=== PATIENT | male | born 1975 | race Caucasian/White ===

== ENCOUNTER 2017-04-16 16:31 | Emergency (ER) | payer OTHER ==
[~2017-04-16] VITALS: Ht 180.3 cm; Wt 65.9 kg
[~2017-04-16 16:31] MED LIST: KEFL500C OR; LISI20TA5 OR; PERC5TAB8 OR; PERC7.5T8 OR
[2017-04-16 16:32] VITALS: BP 158/78
[2017-04-16] MEDS ORDERED: LEXA1TAB2 PO (16:39)
[2017-04-16] MEDS ORDERED: OMEP40CA2 PO (16:39)
[2017-04-16] MEDS ORDERED: PRED20TA PO (17:16)
[2017-04-16] MEDS ORDERED: CLAR10CA3 PO (17:19)
[2017-04-17] MEDS ORDERED: KETO2CR EXT (08:16)
--- NOTE | 2017-04-17 08:32 | ED PDOC ---
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 he will instead use ketoconazole cream and previously prescribed antihistamine for the rash. Tran Brennan PA-C Apr 17, 2017 08:31
== END 2017-04-16 17:43 | disposition home or self-care (01) ==
LOC: M ED 16:31
DX: L30.9 Dermatitis, unspecified (principal); L29.9 Pruritus, unspecified; R03.0 Elevated blood-pressure reading, without diagnosis of hypertension; F33.9 Major depressive disorder, recurrent, unspecified; Z98.0 Intestinal bypass and anastomosis status; Z79.899 Other long term (current) drug therapy

== ENCOUNTER 2017-04-27 21:02 | Emergency (ER) | payer OTHER ==
[~2017-04-27] VITALS: Ht 180.3 cm; Wt 104.5 kg
[~2017-04-27 21:02] MED LIST changes: +CLAR10CA3 PO; +KETO2CR EXT; +LEXA1TAB2 PO; +OMEP40CA2 PO; +PRED20TA PO
[2017-04-27] MEDS ORDERED: FAMOTIDINE 20 MG TAB PO ONE (21:30)
[2017-04-27] MEDS ORDERED: diphenhydrAMINE 25 MG CAP PO ONE (21:30)
[2017-04-27] MEDS ORDERED: methylPREDNISolone INJ 125 MG/2 ML VIAL (J2930) IM ONE (21:30)
[2017-04-27] MEDS ORDERED: SPOR1CAP PO (22:34)
[2017-04-27] MEDS ORDERED: PRED20TA PO (22:34)
[2017-04-27 22:38] VITALS: BP 132/58
== END 2017-04-27 22:39 | disposition home or self-care (01) ==
LOC: M ED 21:02
DX: B36.0 Pityriasis versicolor (principal); K21.9 Gastro-esophageal reflux disease without esophagitis; Z79.899 Other long term (current) drug therapy
CPT/HCPCS: 96372; 99282; J2930

== ENCOUNTER 2017-12-06 19:11 | Emergency (ER) | payer OTHER ==
[2017-12-06] MEDS: FLUORESCEIN OPHTH 1 MG STRIP OD (21:15)
[2017-12-06] MEDS: TETRACAINE 0.5% OPHTH SOLN 4ML OD (21:15)
[2017-12-06] MEDS: ERYTHROMYCIN OPHTH OINT OD (21:40)
== END 2017-12-06 21:40 | disposition home or self-care (01) ==
LOC: M ED 19:11
DX: T15.01XA Foreign body in cornea, right eye, initial encounter (principal); W50.0XXA Accidental hit or strike by another person, initial encounter; Y92.009 Unspecified place in unspecified non-institutional (private) residence as the place of occurrence of the external cause; I10 Essential (primary) hypertension; J45.909 Unspecified asthma, uncomplicated; F33.9 Major depressive disorder, recurrent, unspecified; F41.9 Anxiety disorder, unspecified; F17.200 Nicotine dependence, unspecified, uncomplicated; Z79.899 Other long term (current) drug therapy; Z98.0 Intestinal bypass and anastomosis status
CPT/HCPCS: 65220

== ENCOUNTER 2018-07-28 19:48 | Emergency (ER) | payer OTHER ==
[~2018-07-28] VITALS: Ht 177.8 cm; Wt 106.8 kg
[~2018-07-28 19:48] MED LIST changes: +ERYTOIN8 OD; +SPOR1CAP PO
--- NOTE | 2018-07-28 21:01 | REPVR ---
EXAM: US Right Duplex Lower Extremity Veins, Limited EXAM DATE/TIME: 07/28/2018 8:41 PM CLINICAL HISTORY: 42 years old, male; Pain; Leg, upper; Right; Additional info: R/O dvt TECHNIQUE: Real-time Duplex ultrasound of the Right Lower Extremity with 2-D bess scale, color Doppler flow and spectral waveform analysis. Limited exam was focused on the right lower extremity veins. COMPARISON: No relevant prior studies available. FINDINGS: Right deep veins: Unremarkable. The common femoral, femoral and popliteal veins are patent without thrombus. Normal compressibility, augmentation response and Doppler waveforms. Right superficial veins: Unremarkable. Saphenofemoral junction is patent without thrombus. Soft tissues: Unremarkable. IMPRESSION: No sonographic evidence of deep vein thrombosis. Electronically signed by: Deangelo Lovelace On 07/28/2018 21:01:05 PM
[2018-07-28] MEDS ORDERED: KETOROLAC TROMETHAMINE 10 MG TAB PO ONE (21:45)
[2018-07-28] MEDS ORDERED: MOBI4TAB PO (21:46)
[2018-07-28 22:14] VITALS: BP 140/85
--- NOTE | 2018-07-29 07:32 | REP ---
Clinical: Pain and swelling. Technique: AP, lateral, bilateral oblique and sunrise views of the right and left knee. Findings: Mild degenerative changes include subchondral sclerosis along the tibial plateaus with minimal joint space narrowing. Cortical irregularity to the femoral condyles noted bilaterally along with small osteophyte formation involving the left medial femoral condyle. [place] view demonstrate lateral marginal spurring along the patellar contours with subchondral sclerosis and minimally decreased patellofemoral joint space bilaterally. There is no evidence for acute fracture or dislocation. No effusion. Impression: Mild/early moderate arthritic changes (left greater than right). Electronically Signed by Abelino Linares MD 07/29/2018 07:24 A
== END 2018-07-28 22:16 | disposition home or self-care (01) ==
LOC: M ED 19:48
DX: I80.01 Phlebitis and thrombophlebitis of superficial vessels of right lower extremity (principal); M70.52 Other bursitis of knee, left knee; I10 Essential (primary) hypertension; J45.909 Unspecified asthma, uncomplicated; K21.9 Gastro-esophageal reflux disease without esophagitis; F33.9 Major depressive disorder, recurrent, unspecified; F41.9 Anxiety disorder, unspecified; Z98.84 Bariatric surgery status; Z79.899 Other long term (current) drug therapy; F17.210 Nicotine dependence, cigarettes, uncomplicated

== ENCOUNTER 2018-10-26 17:48 | Emergency (ER) | payer OTHER ==
[~2018-10-26] VITALS: Ht 177.8 cm; Wt 106.8 kg
[~2018-10-26 17:48] MED LIST changes: +MOBI4TAB PO
[2018-10-26] MEDS ORDERED: ADACEL/BOOSTRIX VACCINE (DIPHTH/PERTUSS/ACELL/TETANUS)0.5ML SYR (90715) IM ONE (18:15)
[2018-10-26] MEDS ORDERED: LIDOCAINE 1% MDV 20ML VIAL SC ONE (19:15)
--- NOTE | 2018-10-26 19:29 | REP ---
Clinical: Laceration. Technique: AP, lateral, bilateral oblique views of the right third digit. Findings: Soft tissue injury noted over the terminal tuft/distal phalanx. No foreign body. No acute fracture or dislocation. Osseous structures and joint space is normal. Impression: Soft tissue injury. Electronically Signed by Abelino Linares MD 10/26/2018 07:21 P
[2018-10-26 19:57] VITALS: BP 129/73
== END 2018-10-26 20:00 | disposition home or self-care (01) ==
LOC: M ED 17:48
DX: S61.212A Laceration without foreign body of right middle finger without damage to nail, initial encounter (principal); W26.0XXA Contact with knife, initial encounter; Y92.009 Unspecified place in unspecified non-institutional (private) residence as the place of occurrence of the external cause; Y93.H3 Activity, building and construction; F17.210 Nicotine dependence, cigarettes, uncomplicated; Z79.899 Other long term (current) drug therapy

== ENCOUNTER → 2018-10-28 | Outpatient (CLI) | payer OTHER ==
[2018-10-28 18:23] LABS: BASO # 0.1 10^3/uL (0.0-0.2); BASO % 0.8 % (0.0-1.0); EOS # 0.4 10^3/uL (0.0-0.50); EOS % 6.4 % (0.0-3.0); HEMOGLOBIN 16.5 g/dl (13.5-17.5); LYMPH # 1.7 10^3/uL (1.5-4.5); LYMPH % 28.2 % (24.0-44.0); MEAN CORPUSCULAR HEMOGLOBIN 30.4 pg (27.0-33.0); MEAN CORPUSCULAR HGB CONC 33.7 g/dl (32.0-36.5); MEAN CORPUSCULAR VOLUME 90.2 fl (80.0-96.0); MONO # 0.4 10^3/uL (0.0-0.8); MONO % 7.4 % (0.0-5.0); NEUTROPHILS # 3.4 10^3/uL (1.8-7.7); NEUTROPHILS % 56.9 % (36.0-66.0); PLATELET COUNT, AUTOMATED 231 10^3/uL (150-450); RED BLOOD COUNT 5.43 10^6/uL (4.30-6.10)
[2018-10-28 18:37] LABS: ALBUMIN 4.2 GM/DL (3.2-5.2); ALT/SGPT 23 U/L (12-78); BILIRUBIN,TOTAL 1.3 MG/DL (0.2-1.0); BLOOD UREA NITROGEN 14 MG/DL (7-18); CALCIUM LEVEL 9.1 MG/DL (8.5-10.1); CARBON DIOXIDE LEVEL 29 MEQ/L (21-32); CHLORIDE LEVEL 105 MEQ/L (98-107); CHOLESTEROL LEVEL 145 MG/DL (<200); CHOLESTEROL RISK RATIO 2.959 (<5); GLOMERULAR FILTRATION RATE > 60.0 (>60); GLUCOSE, FASTING 88 MG/DL (70-100); HDL CHOLESTEROL 49 MG/DL (>40); LDL CHOLESTEROL 86 MG/DL (<100); NON-HDL-C 96 MG/DL; POTASSIUM SERUM 4.5 MEQ/L (3.5-5.1); SODIUM LEVEL 140 MEQ/L (136-145); THYROID STIMULATING HORMONE 0.932 uIU/ML (0.358-3.740); TOTAL PROTEIN 6.9 GM/DL (6.4-8.2); TRIGLYCERIDES LEVEL 51 MG/DL (<150)
[2018-10-28 19:10] LABS: HEMOGLOBIN A1c 4.9 %
[2018-10-30 09:02] LABS: TESTOSTERONE 769 NG/DL (241-827)
== END ==
LOC: M ADAMS 11:45
DX: Z13.0 Encounter for screening for diseases of the blood and blood-forming organs and certain disorders involving the immune mechanism (principal); Z13.1 Encounter for screening for diabetes mellitus; Z13.29 Encounter for screening for other suspected endocrine disorder; Z13.220 Encounter for screening for lipoid disorders; R73.01 Impaired fasting glucose; E29.1 Testicular hypofunction

== ENCOUNTER → 2019-04-04 | Outpatient (CLI) | payer OTHER ==
[~2019-04-04] MED LIST changes: +BACT800T5 PO; +BUSP10TA PO; +CLIN150C14 PO; -OMEP40CA2 PO; +OMEP40CA97 PO
--- NOTE | 2019-04-04 13:44 | REP ---
MRI RIGHT SHOULDER: TECHNIQUE: Axial T2 fat sat, gradient echo, sagittal oblique T2 fat sat, coronal oblique T1, T2 fat sat. There is a partial undersurface tear of the distal supraspinatus tendon. Infraspinatus tendon demonstrates areas of increased signal on T2-weighted images consistent with partial tears which have a predominantly longitudinal orientation. There is moderate subscapularis tendinopathy/tendonitis with possible partial tear. There are moderate hypertrophic degenerative changes of the acromioclavicular joint with subchondral marrow edema. The acromion is type 2. Biceps tendon is within the bicipital groove with mild surrounding fluid which may indicate tenosynovitis. There is no Hill-Sachs deformity. The deltoid muscle demonstrates no abnormal signal. There is fraying of the biceps labral complex and also diffusely of the superior labrum. Other portions of the labrum appear intact. Bone marrow signal is otherwise unremarkable. No paralabral cyst is seen. Normal amount of glenohumeral joint fluid is seen. IMPRESSION: Partial undersurface tear supraspinatus tendon. Longitudinal interstitial type tears of the infraspinatus tendon extending to the musculotendinous junction. Moderate subscapularis tendinopathy with possible partial tear. There are moderate hypertrophic degenerative changes of the acromioclavicular joint with a type II acromion. Mild fluid surrounding the biceps tendon may represent mild tenosynovitis. There is fraying of the biceps labral complex and superior labrum. Electronically Signed by Mahendra Cortez MD 04/04/2019 03:36 P
== END ==
LOC: M RAD 10:16
PROVIDERS: ATTEND Orthopaedic Surgery Sports Medicine
DX: M25.511 Pain in right shoulder (principal); M19.011 Primary osteoarthritis, right shoulder

== ENCOUNTER 2019-07-20 20:39 | Emergency (ER) | payer OTHER ==
[~2019-07-20] VITALS: Ht 177.8 cm; Wt 104.5 kg
[~2019-07-20 20:39] MED LIST changes: -BACT800T5 PO; -BUSP10TA PO; -CLIN150C14 PO
[2019-07-20] MEDS ORDERED: BUSP10TA PO (20:44)
[2019-07-20] MEDS ORDERED: BACTRIM 160MG/800MG DS TAB PO ONE (22:15)
[2019-07-20] MEDS ORDERED: BACT800T5 PO (22:19)
[2019-07-20 22:28] VITALS: BP 135/81
== END 2019-07-20 22:33 | disposition home or self-care (01) ==
LOC: M ED 20:39
DX: L03.114 Cellulitis of left upper limb (principal); J45.909 Unspecified asthma, uncomplicated; I10 Essential (primary) hypertension; K21.9 Gastro-esophageal reflux disease without esophagitis; F17.210 Nicotine dependence, cigarettes, uncomplicated

== ENCOUNTER 2019-07-22 00:36 | Observation (INO) | payer OTHER ==
[~2019-07-22] VITALS: Ht 177.8 cm; Wt 104.5 kg
[~2019-07-22 00:36] MED LIST changes: +BACT800T5 PO; +BUSP10TA PO
[2019-07-22 01:15] LABS: BASO # 0.1 10^3/uL (0.0-0.2); BASO % 1.5 % (0.0-1.0); EOS # 0.5 10^3/uL (0.0-0.5); HEMATOCRIT 44.9 % (42.0-52.0); HEMOGLOBIN 15.2 g/dl (13.5-17.5); LYMPH # 2.8 10^3/uL (1.5-5.0); LYMPH % 43.4 % (24.0-44.0); MEAN CORPUSCULAR HEMOGLOBIN 30.4 pg (27.0-33.0); MEAN CORPUSCULAR HGB CONC 33.9 g/dl (32.0-36.5); MEAN CORPUSCULAR VOLUME 89.8 fl (80.0-96.0); MONO # 0.5 10^3/uL (0.0-0.8); MONO % 8.2 % (0.0-5.0); NEUTROPHILS # 2.5 10^3/uL (1.5-8.5); NEUTROPHILS % 38.6 % (36.0-66.0); PLATELET COUNT, AUTOMATED 225 10^3/uL (150-450); WHITE BLOOD COUNT 6.5 10^3/uL (4.0-10.0)
[2019-07-22 01:36] LABS: ERYTHROCYTE SEDIMENTATION RATE 5 mm/hr (0-15)
--- NOTE | 2019-07-22 01:36 | REPVR ---
PROCEDURE INFORMATION: Exam: US Duplex Left Upper Extremity Veins, Limited Exam date and time: 07/22/2019 1:34 AM Age: 43 years old Clinical indication: Pain; Arm, lower; Left; Additional info: Swelling left arm TECHNIQUE: Imaging protocol: Real-time Duplex ultrasound of the Left Upper Extremity with 2-D bess scale, color Doppler flow and spectral waveform analysis with image documentation. Limited exam focused on the left upper extremity veins. COMPARISON: No relevant prior studies available. FINDINGS: Normal venous compressibility, with no intraluminal filling defect. Doppler wave forms and flow directionality appear normal. No abnormal focal fluid collections are present. IMPRESSION: No evidence of deep venous thrombosis in left upper extremity venous system. Electronically signed by: Gaston Humphrey On 07/22/2019 01:36:36 AM
[2019-07-22] MEDS ORDERED: ceFAZolin SOD 1 GM in D5W MINI-BAG PLUS 50 ML IV ONE (01:45)
[2019-07-22 01:50] LABS: ALBUMIN 3.6 GM/DL (3.2-5.2); ALT/SGPT 20 U/L (12-78); BILIRUBIN,DIRECT 0.2 MG/DL (0.0-0.2); BILIRUBIN,TOTAL 0.7 MG/DL (0.2-1.0); BLOOD UREA NITROGEN 22 MG/DL (7-18); C REACTIVE PROTEIN QUANTITATIV < 0.30 MG/DL (0.00-0.30); CALCIUM LEVEL 8.5 MG/DL (8.5-10.1); CARBON DIOXIDE LEVEL 25 MEQ/L (21-32); CHLORIDE LEVEL 108 MEQ/L (98-107); CREATININE FOR GFR 0.98 MG/DL (0.70-1.30); GLOMERULAR FILTRATION RATE > 60.0 (>60); GLUCOSE, FASTING 126 MG/DL (70-100); POTASSIUM SERUM 3.9 MEQ/L (3.5-5.1); SODIUM LEVEL 140 MEQ/L (136-145); TOTAL PROTEIN 6.5 GM/DL (6.4-8.2)
[2019-07-22] MEDS ORDERED: BACT800T5 PO (02:55)
--- NOTE | 2019-07-22 03:14 | HPEPDOC ---
General Date of Admission 07/22/19 Date of Service: Jul 22, 2019 Chief Complaint The patient is a 43-year-old male admitted with a reason for visit of Arm Problem. Source: Patient Exam Limitations: No limitations Timing/Duration: Day(s) Severity: Mild History of Present Illness Patient is a 43 years old male without significant past medical history presented hospital with left forearm redness. Patient stated that around 2 days ago he noticed erythema in his distal part of left forearm associated with mild discomfort, subsequently redness was increased and patient had mild pain around 2 out of 10. He took Bactrim, however redness was progressing. In emergency room patient was found to have no leukocytosis, lactic acid within a normal limit Patient denied fever, chills, nausea, vomiting, shortness of breath, palpitations, diarrhea or dysuria Home Medications Scheduled Buspirone HCl (Buspirone HCl) 10 Mg Tablet, 10 MG PO Q12H, (Reported) Escitalopram Oxalate (Lexapro) 20 Mg Tab, 20 MG PO DAILY, (Reported) Omeprazole (Omeprazole) 40 Mg Cap, 40 MG PO DAILY, (Reported) Sulfamethoxazole/Trimethoprim (Bactrim Ds Tablet) 1 Each Tablet, 1 TAB PO Q12H, (Reported) Allergies Coded Allergies: No Known Allergies (Verified , 02/04/03) Past Medical History Medical History No significant past medical history Surgical History Gastric bypass surgery around 3 years ago Family History Mother from brain hemorrhage, father had diabetes and heart attack Social History * Smoker: current smoker Alcohol: Denies Drugs: denies A-FIB/CHADSVASC A-FIB History Current/History of A-Fib/PAF?: No Current PO Anticoag Therapy: No Review of Systems Constitutional: Denies: Chills Eyes: Denies: Pain, Vision change ENT: Denies: Head Aches Skin: Reports: Rash (left distal forearm) Pulmonary: Denies: Dyspnea Cardiovascular: Denies: Chest Pain, Palpitations Gastrointestinal: Denies: Nausea, Vomiting Genitourinary: Denies: Dysuria, Frequency Hematologic: Denies: Bruising, Bleeding Excessively Endocrine: Denies: Polydipsia, Polyphagia Musculoskeletal: Denies: Neck Pain, Back Pain Neurological: Denies: Weakness, Numbness Psych: Reports: Mood Normal Physical Examination General Exam: Positive: Alert Eye Exam: Positive: PERRLA ENT Exam: Positive: Atraumatic Neck Exam: Positive: Supple; Negative: JVD Chest Exam: Positive: Clear to auscultation Heart Exam: Positive: Rate Normal Telemetry: Positive: No significant arrhythmia Abdomen Exam: Positive: Normal bowel sounds Extremity Exam: Negative: Clubbing, Cyanosis Skin Exam: Positive: Nl turgor and temperature, Rash (left distal forearm) Neuro Exam: Positive: Normal Gait, Strength at 5/5 X4 ext Psych Exam: Positive: Mental status NL Vital Signs Vital Signs Date Time Temp Pulse Resp B/P (MAP) Pulse Ox O2 Delivery O2 Flow Rate FiO2 07/22/19 00:53 07/22/19 00:37 96.5 74 16 98 Room Air Laboratory Data Labs 24H Laboratory Tests 2 07/22/19 01:02: Lactic Acid Level 1.1 07/22/19 01:03: Immature Granulocyte % (Auto) 0.3, Neutrophils (%) (Auto) 38.6, Lymphocytes (%) (Auto) 43.4, Monocytes (%) (Auto) 8.2H, Eosinophils (%) (Auto) 8.0H, Basophils (%) (Auto) 1.5H, Neutrophils # (Auto) 2.5, Lymphocytes # (Auto) 2.8, Monocytes # (Auto) 0.5, Eosinophils # (Auto) 0.5, Basophils # (Auto) 0.1, Nucleated Red Blood Cells % (auto) 0.0, Erythrocyte Sedimentation Rate 5, Anion Gap 7L, Glomerular Filtration Rate > 60.0, Calcium Level 8.5, Total Bilirubin 0.7, Direct Bilirubin 0.2, Aspartate Amino Transf (AST/SGOT) 16, Alanine Aminotrans ferase (ALT/SGPT) 20, Alkaline Phosphatase 62, C-Reactive Protein, Quantitative < 0.30, Total Protein 6.5, Albumin 3.6, Albumin/Globulin Ratio 1.24 CBC/BMP Laboratory Tests 07/22/19 01:03 Microbiology Microbiology 07/22/19 Blood Culture, Received Pending 07/22/19 Blood Culture, Received Pending Assessment/Plan Patient is a 43 years old male without significant past medical history presented hospital with left forearm redness. Patient stated that around 2 days ago he noticed erythema in his distal part of left forearm associated with mild discomfort, subsequently redness was increased and patient had mild pain around 2 out of 10. He took Bactrim, however redness was progressing. In emergency room patient was found to have no leukocytosis, lactic acid within a normal limit. Patient was diagnosed with left forearm cellulitis Problems (1) Cellulitis of left upper extremity Status: Acute Problem Text: Patient is not septic, doesn't have systemic signs of infection Clindamycin IV IV fluid Consider surgical evaluation if cellulitis increase in size despite of IV antibiotic and given close proximity to the hand Plan / VTE VTE Prophylaxis Ordered?: No VTE Exclusion Mechanical Proph: Low Risk for VTE VTE Exclusion Pharmacological: At Low Risk for VTE ALLY FROST DO Jul 22, 2019 03:14
[2019-07-22 03:58] VITALS: BP 115/79
[2019-07-22] MEDS: NS 1,000 ML IV SCH ×2 (04:27→12:38)
[2019-07-22] MEDS: CLINDAMYCIN 150 MG CAP PO SCH ×2 (05:03→13:10)
[2019-07-22 06:00] VITALS: BP 126/75
[2019-07-22] MEDS ORDERED: ESCITALOPRAM OXALATE 10 MG TAB (LEXAPRO) PO SCH (09:00)
[2019-07-22] MEDS ORDERED: busPIRone 10 MG TAB PO SCH (09:00)
[2019-07-22] MEDS ORDERED: OMEPRAZOLE 20 MG CAP PO SCH (09:00)
--- NOTE | 2019-07-22 09:21 | REP ---
REASON: Tender swelling. FINDINGS: No acute fracture or destructive osseous lesion. Electronically Signed by Kike Gutierrez DO 07/22/2019 09:29 A
[2019-07-22 14:00] VITALS: BP 127/75
[2019-07-22] MEDS ORDERED: CLIN150C14 PO (14:51)
--- NOTE | 2019-07-22 23:53 | DS.PDOC ---
Discharge Summary General Date of Admission Jul 22, 2019 at 00:37 Date of Discharge 07/22/19 Attending Physician: CHAO TRINIDAD MD Discharge Summary PROCEDURES PERFORMED DURING STAY: None. ADMITTING DIAGNOSES: 1. Cellulitis. DISCHARGE DIAGNOSES: 1. Cellulitis. COMPLICATIONS/CHIEF COMPLAINT: Cellulitis Of Left Upper Extremity. HISTORY OF PRESENT ILLNESS: 43-year-old male with past medical history of gastric bypass was admitted for left upper extremity cellulitis. He was treated with Clindamycin with significant improvement in left arm swelling, redness and pain. Patient was seen the next morning, without any complaints, advised to stay for another 24 hours for monitoring and preliminary results of blood cultures, but patient insisted on going home today. Patient reports that he will return if needed. Return precautions were discussed with patient, patient was advised to return to emergency department if fever returns, swelling or redness of the arm worsens or if patient develops new symptoms. He understands and agrees with discharge plan; patient is clinically and hemodynamically stable for discharge at this time with close outpatient follow-up. HOSPITAL COURSE: As above. DISCHARGE MEDICATIONS: Please see below. ALLERGIES: Please see below. PHYSICAL EXAMINATION: VITAL SIGNS: Please see below. GENERAL: No distress HEENT: Normocephalic, atraumatic, moist mucous membranes NECK: Supple CARDIOVASCULAR EXAMINATION: S1, S2, no murmurs RESPIRATORY EXAMINATION: Clear to auscultation, no wheezing ABDOMINAL EXAMINATION: Soft, nontender, nondistended, positive bowel sounds EXTREMITIES: Left upper extremity with minimal edema and redness noted on left distal forearm, nontender SKIN: No rash NEUROLOGICAL EXAMINATION: Alert and oriented 3, no focal deficits PSYCHIATRIC EXAMINATION: Calm and cooperative LABORATORY DATA: Please see below. IMAGING: Left upper extremity negative for dvt PROGNOSIS: Fair ACTIVITY: As tolerated. DIET: Regular DISCHARGE PLAN: Follow-up with PCP in 1-2 weeks DISPOSITION: 01 Home, Self-Care. DISCHARGE INSTRUCTIONS: 1. As above. DISCHARGE CONDITION: Stable. TIME SPENT ON DISCHARGE: Greater than 34 minutes. Vital Signs/I&Os Vital Signs Date Time Temp Pulse Resp B/P (MAP) Pulse Ox O2 Delivery O2 Flow Rate FiO2 07/22/19 14:00 98.1 80 15 127/75 (92) 97 Room Air I&O- Last 24 Hours up to 6 AM 07/22/19 06:00 Intake Total 50 ml Balance 50 ml Laboratory Data Labs 24H Laboratory Tests 2 07/22/19 01:02: Lactic Acid Level 1.1 07/22/19 01:03: Immature Granulocyte % (Auto) 0.3, Neutrophils (%) (Auto) 38.6, Lymphocytes (%) (Auto) 43.4, Monocytes (%) (Auto) 8.2H, Eosinophils (%) (Auto) 8.0H, Basophils (%) (Auto) 1.5H, Neutrophils # (Auto) 2.5, Lymphocytes # (Auto) 2.8, Monocytes # (Auto) 0.5, Eosinophils # (Auto) 0.5, Basophils # (Auto) 0.1, Nucleated Red Blood Cells % (auto) 0.0, Erythrocyte Sedimentation Rate 5, Anion Gap 7L, Glomerular Filtration Rate > 60.0, Calcium Level 8.5, Total Bilirubin 0.7, Direct Bilirubin 0.2, Aspartate Amino Transf (AST/SGOT) 16, Alanine Aminotransferase (ALT/SGPT) 20, Alkaline Phosphatase 62, C-Reactive Protein, Quantitative < 0.30, Total Protein 6.5, Albumin 3.6, Albumin/Globulin Ratio 1.24 07/22/19 04:30: Methicillin-Resist S.aureus DNA PCR NOT DETECTED CBC/BMP Laboratory Tests 07/22/19 01:03 Microbiology Microbiology 07/22/19 Blood Culture, Received Pending 07/22/19 Blood Culture, Received Pending Discharge Medications Scheduled Buspirone HCl (Buspirone HCl) 10 Mg Tablet, 10 MG PO Q12H, (Reported) Clindamycin Hcl (Clindamycin HCl) 150 Mg Capsule, 450 MG PO Q8H Escitalopram Oxalate (Lexapro) 20 Mg Tab, 20 MG PO DAILY, (Reported) Omeprazole (Omeprazole) 40 Mg Cap, 40 MG PO DAILY, (Reported) Allergies Coded Allergies: No Known Allergies (Verified , 07/22/19) CHAO TRINIDAD MD Jul 22, 2019 23:53
== END 2019-07-22 15:54 | disposition home or self-care (01) ==
LOC: M ED 00:36 → M ED INP 00:37 → M MSPAV 03:58
PROVIDERS: ADMIT Internal Medicine; ATTEND Internal Medicine
DX: L03.114 Cellulitis of left upper limb (principal); F41.9 Anxiety disorder, unspecified; F32.9 Major depressive disorder, single episode, unspecified; I10 Essential (primary) hypertension; J45.909 Unspecified asthma, uncomplicated; Z98.84 Bariatric surgery status; Z79.899 Other long term (current) drug therapy; Z79.2 Long term (current) use of antibiotics; F17.210 Nicotine dependence, cigarettes, uncomplicated
CPT/HCPCS: 73090; 80048; 80076; 83605; 85025; 85652; 86140; 87040; 87077; 87186; 87641; 93971; 96365; 96366; 99284; J0690

== ENCOUNTER 2019-07-22 20:29 | Observation (INO) | payer OTHER ==
[~2019-07-22] VITALS: Ht 177.8 cm; Wt 105.5 kg
[~2019-07-22 20:29] MED LIST changes: +CLIN150C14 PO
--- NOTE | 2019-07-22 20:59 | ED PDOC ---
Post-Departure Follow-Up ED Attending Note Patient was called back for admission by Hospitalist service. Hospitalist was called on arrival and is admitting patient. Patient was not seen by an ED provider. KARY TRACEY MD Jul 22, 2019 20:59
--- NOTE | 2019-07-22 21:40 | HPEPDOC ---
General Date of Admission 07/22/19 Date of Service: Jul 22, 2019 Chief Complaint The patient is a 43-year-old male admitted with a reason for visit of Recheck. Source: Patient Exam Limitations: No limitations Timing/Duration: 24 hours Severity: Mild History of Present Illness Patient is a 43 years old male without significant past medical history presented hospital with left forearm redness. Patient stated that around 3 days ago he noticed erythema in his distal part of left forearm associated with mild discomfort, subsequently redness was increased and patient had mild pain around 2 out of 10. He took Bactrim, however redness was progressing. Patient was admitted with diagnosis left upper extremity cellulitis, treatment with clindamycin started. On the 07/22/19 patient was discharged from the hospital due to significant improvement of his clinical condition. However after discharge blood culture came back and it was positive for gram-positive cocci in clusters and anaerobes. Patient was asked to come back to the hospital. Patient denies fever, chills, nausea, vomiting, shortness of breath, palpitations, diarrhea or dysuria. Home Medications Scheduled Buspirone HCl (Buspirone HCl) 10 Mg Tablet, 10 MG PO Q12H, (Reported) Clindamycin Hcl (Clindamycin HCl) 150 Mg Capsule, 450 MG PO Q8H Escitalopram Oxalate (Lexapro) 20 Mg Tab, 20 MG PO DAILY, (Reported) Omeprazole (Omeprazole) 40 Mg Cap, 40 MG PO DAILY, (Reported) Allergies Coded Allergies: No Known Allergies (Verified , 07/22/19) Past Medical History Medical History No significant past medical history Surgical History Gastric bypass surgery around 3 years ago Family History Mother from brain hemorrhage, father had diabetes and heart attack Social History * Smoker: current smoker Alcohol: Denies Drugs: denies A-FIB/CHADSVASC A-FIB History Current/History of A-Fib/PAF?: No Current PO Anticoag Therapy: No Review of Systems Constitutional: Denies: Chills Eyes: Denies: Pain ENT: Denies: Head Aches Skin: Reports: Rash (mild rash on the distal part of left forearm) Pulmonary: Denies: Dyspnea Cardiovascular: Denies: Chest Pain Gastrointestinal: Denies: Nausea, Vomiting Genitourinary: Denies: Dysuria Hematologic: Denies: Bleeding Excessively Endocrine: Denies: Polydipsia, Polyphagia Musculoskeletal: Denies: Neck Pain, Other Symptoms Neurological: Denies: Weakness Psych: Reports: Mood Normal Physical Examination General Exam: Positive: Alert, Cooperative Eye Exam: Positive: PERRLA ENT Exam: Positive: Atraumatic Neck Exam: Positive: Supple; Negative: JVD Chest Exam: Positive: Clear to auscultation Heart Exam: Positive: Rate Normal Telemetry: Positive: No significant arrhythmia Abdomen Exam: Positive: Normal bowel sounds Extremity Exam: Negative: Clubbing, Cyanosis Skin Exam: Positive: Nl turgor and temperature, Other skin issue (mild erythema on the distal part of the left forearm); Negative: Rash Neuro Exam: Positive: Normal Gait, Strength at 5/5 X4 ext, Cranial Nerves 3-12 NL Psych Exam: Positive: Mental status NL Vital Signs Vital Signs Date Time Temp Pulse Resp B/P (MAP) Pulse Ox O2 Delivery O2 Flow Rate FiO2 07/22/19 20:42 07/22/19 20:31 97.9 63 18 100 Room Air Assessment/Plan Patient is a 43 years old male without significant past medical history presented hospital with left forearm redness. Patient stated that around 3 days ago he noticed erythema in his distal part of left forearm associated with mild discomfort, subsequently redness was increased and patient had mild pain around 2 out of 10. He took Bactrim, however redness was progressing. Patient was admitted with diagnosis left upper extremity cellulitis, treatment with clindamycin started. Problems (1) Cellulitis of left upper extremity Status: Acute Problem Text: Cellulitis of left upper extremity, significantly improved from yesterday. Patient is not septic, doesn't have systemic signs of infection, however blood culture came back positive for gram-positive cocci in clusters and anaerobes. We'll repeat blood culture. There is concern for contamination given no any constitutional symptoms Clindamycin IV IV fluid Echo to rule out vegetation Plan / VTE VTE Prophylaxis Ordered?: No VTE Exclusion Mechanical Proph: Low Risk for VTE ALLY FROST DO Jul 22, 2019 21:40
[2019-07-22 23:19] LABS: HEMATOCRIT 42.8 % (42.0-52.0); HEMOGLOBIN 14.6 g/dl (13.5-17.5); MEAN CORPUSCULAR HEMOGLOBIN 30.2 pg (27.0-33.0); MEAN CORPUSCULAR HGB CONC 34.1 g/dl (32.0-36.5); MEAN CORPUSCULAR VOLUME 88.4 fl (80.0-96.0); PLATELET COUNT, AUTOMATED 202 10^3/uL (150-450); RED BLOOD COUNT 4.84 10^6/uL (4.30-6.10); WHITE BLOOD COUNT 6.5 10^3/uL (4.0-10.0)
[2019-07-22 23:30] VITALS: BP 127/63
[2019-07-22 23:37] LABS: ERYTHROCYTE SEDIMENTATION RATE 4 mm/hr (0-15)
[2019-07-22 23:43] LABS: BLOOD UREA NITROGEN 16 MG/DL (7-18); CALCIUM LEVEL 8.3 MG/DL (8.5-10.1); CARBON DIOXIDE LEVEL 25 MEQ/L (21-32); CHLORIDE LEVEL 109 MEQ/L (98-107); CREATININE FOR GFR 0.81 MG/DL (0.70-1.30); GLOMERULAR FILTRATION RATE > 60.0 (>60); GLUCOSE, FASTING 114 MG/DL (70-100); POTASSIUM SERUM 3.9 MEQ/L (3.5-5.1); SODIUM LEVEL 141 MEQ/L (136-145)
[2019-07-22] MEDS: CLINDAMYCIN 600 MG in IV 1 EA IV SCH (23:43)
[2019-07-23] MEDS: CLINDAMYCIN 600 MG in IV 1 EA IV SCH (05:40)
[2019-07-23 06:16] LABS: HEMATOCRIT 43.6 % (42.0-52.0); MEAN CORPUSCULAR HEMOGLOBIN 30.6 pg (27.0-33.0); MEAN CORPUSCULAR HGB CONC 34.4 g/dl (32.0-36.5); PLATELET COUNT, AUTOMATED 213 10^3/uL (150-450); WHITE BLOOD COUNT 6.5 10^3/uL (4.0-10.0)
[2019-07-23 06:44] LABS: BLOOD UREA NITROGEN 17 MG/DL (7-18); CALCIUM LEVEL 8.8 MG/DL (8.5-10.1); CARBON DIOXIDE LEVEL 25 MEQ/L (21-32); CHLORIDE LEVEL 110 MEQ/L (98-107); GLOMERULAR FILTRATION RATE > 60.0 (>60); GLUCOSE, FASTING 101 MG/DL (70-100); MAGNESIUM LEVEL 2.2 MG/DL (1.8-2.4); POTASSIUM SERUM 4.2 MEQ/L (3.5-5.1); SODIUM LEVEL 142 MEQ/L (136-145)
[2019-07-23 07:01] VITALS: BP 127/67
--- NOTE | 2019-07-23 21:46 | DS.PDOC ---
Discharge Summary General Date of Admission Jul 22, 2019 at 20:30 Date of Discharge 07/23/19 Attending Physician: CHAO TRINIDAD MD Discharge Summary PROCEDURES PERFORMED DURING STAY: None. ADMITTING DIAGNOSES: 1. Cellulitis, ?bacteremia. DISCHARGE DIAGNOSES: 1. Cellulitis, ?bacteremia. COMPLICATIONS/CHIEF COMPLAINT: Cellulitis Of Left Upper Extremity. HISTORY OF PRESENT ILLNESS: 43-year-old male with past medical history of gastric bypass was admitted for left upper extremity cellulitis with possible bacteremia. He was discharged yesterday but after discharge one set of preliminary blood cultures were positive for Gram + cocci in clusters. He was called back to the hospital for readmission. Clinically he does not appear septic, has been responding really well to PO antibiotics and culture results are likely due to contamination as opposed to true bacteremia, especially since only one set is growing organisms. Repeat blood cultures have been negative so far, he is adamant about leaving as he appears really good clinically. Importance of appropriate detection and treatment of bacteremia discussed with patient. He continued to insist on leaving, outpatient follow up was arranged with patient's PCP later today followed by close monitoring of blood cultures and appropriate treatment. He is advised to return to the ED if symptoms worsen or he becomes febrile; he is advised to complete his treatment with Clindamycin that was prescribed yesterday. He understands and agrees with discharge plan; patient is clinically and hemodynamically stable for discharge at this time with close outpatient follow-up. HOSPITAL COURSE: As above. DISCHARGE MEDICATIONS: Please see below. ALLERGIES: Please see below. PHYSICAL EXAMINATION: VITAL SIGNS: Please see below. GENERAL: No distress HEENT: Normocephalic, atraumatic, moist mucous membranes NECK: Supple CARDIOVASCULAR EXAMINATION: S1, S2, no murmurs RESPIRATORY EXAMINATION: Clear to auscultation, no wheezing ABDOMINAL EXAMINATION: Soft, nontender, nondistended, positive bowel sounds EXTREMITIES: Left upper extremity with minimal edema and redness noted on left distal forearm, non-tender SKIN: No rash NEUROLOGICAL EXAMINATION: Alert and oriented 3, no focal deficits PSYCHIATRIC EXAMINATION: Calm and cooperative LABORATORY DATA: Please see below. PROGNOSIS: Fair ACTIVITY: As tolerated. DIET: Regular DISCHARGE PLAN: Follow-up with PCP later today followed by close follow up of blood culture results. DISPOSITION: 01 Home, Self-Care. DISCHARGE INSTRUCTIONS: 1. As above. DISCHARGE CONDITION: Stable. TIME SPENT ON DISCHARGE: Greater than 34 minutes. Vital Signs/I&Os Vital Signs Date Time Temp Pulse Resp B/P (MAP) Pulse Ox O2 Delivery O2 Flow Rate FiO2 07/23/19 07:01 97.6 61 20 127/67 (87) 96 Room Air I&O- Last 24 Hours up to 6 AM 07/23/19 05:59 Intake Total 520 ml Output Total 600 ml Balance -80 ml Laboratory Data Labs 24H Laboratory Tests 2 07/22/19 23:00: Nucleated Red Blood Cells % (auto) 0.0, Erythrocyte Sedimentation Rate 4, Anion Gap 7L, Glomerular Filtration Rate > 60.0, Calcium Level 8.3L 07/22/19 23:20: Methicillin-Resist S.aureus DNA PCR NOT DETECTED 07/23/19 05:51: Nucleated Red Blood Cells % (auto) 0.0, Anion Gap 7L, Glomerular Filtration Rate > 60.0, Calcium Level 8.8, Magnesium Level 2.2 CBC/BMP Laboratory Tests 07/22/19 23:00 07/23/19 05:51 Microbiology Microbiology 07/22/19 Blood Culture, Received Pending Discharge Medications Scheduled Buspirone HCl (Buspirone HCl) 10 Mg Tablet, 10 MG PO Q12H, (Reported) Clindamycin Hcl (Clindamycin HCl) 150 Mg Capsule, 450 MG PO Q8H Escitalopram Oxalate (Lexapro) 20 Mg Tab, 20 MG PO DAILY, (Reported) Omeprazole (Omeprazole) 40 Mg Cap, 40 MG PO DAILY, (Reported) Allergies Coded Allergies: No Known Allergies (Verified , 07/22/19) CHAO TRINIDAD MD Jul 23, 2019 21:46
== END 2019-07-23 11:10 | disposition home or self-care (01) ==
LOC: M ED 20:29 → M ED INP 20:30 → M MS5PR 23:18
PROVIDERS: ADMIT Internal Medicine; ATTEND Internal Medicine
DX: L03.114 Cellulitis of left upper limb (principal); R89.5 Abnormal microbiological findings in specimens from other organs, systems and tissues; Z98.84 Bariatric surgery status; Z79.899 Other long term (current) drug therapy; Z79.2 Long term (current) use of antibiotics; F17.210 Nicotine dependence, cigarettes, uncomplicated

== ENCOUNTER → 2019-09-08 | Outpatient (CLI) | payer OTHER ==
--- NOTE | 2019-09-08 16:47 | ECGEPIP ---
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 Electronically Signed on 09-08-2019 16:47:38 EST by Anson Carrion
== END ==
LOC: M EKG 13:24
PROVIDERS: ATTEND Anesthesiology
DX: Z01.818 Encounter for other preprocedural examination (principal); R12 Heartburn; F41.9 Anxiety disorder, unspecified; F32.9 Major depressive disorder, single episode, unspecified

== ENCOUNTER 2019-09-12 09:00 | Day surgery (SDC) | payer OTHER ==
[~2019-09-12] VITALS: Ht 177.8 cm; Wt 106.6 kg
[2019-09-12] MEDS ORDERED: ROPIvacaine 0.5% 30 ML INJECTION (J2795 PER 1MG) ONE (09:01)
[2019-09-12] MEDS ORDERED: ceFAZolin SOD 2 GM in IV 1 EA IV ONE (09:30)
[2019-09-12] MEDS ORDERED: MIDAZOLAM INJ 2 MG/2 ML VIAL (J2250) As Ordered ONE (09:57)
[2019-09-12] MEDS ORDERED: fentaNYL 100 MCG/2 ML INJECTION (J3010) As Ordered ONE ×2 (09:57→11:01)
[2019-09-12] MEDS ORDERED: EPINEPHrine INJ 1 MG/ML 1ML VIAL As Ordered ONE (10:27)
[2019-09-12] MEDS ORDERED: MIDAZOLAM INJ 2 MG/2 ML VIAL (J2250) IV ONE (10:45)
[2019-09-12] MEDS ORDERED: fentaNYL 100 MCG/2 ML INJECTION (J3010) IV ONE (10:45)
[2019-09-12] MEDS ORDERED: LR 1,000 ML IV ONE (11:00)
[2019-09-12] MEDS ORDERED: SUGAMMADEX SODIUM 500 MG/5 ML VIAL (BRIDION) As Ordered ONE (11:01)
[2019-09-12] MEDS ORDERED: LIDOCAINE 2% INJ 100 MG/5 ML SDV (FOR ANES.) As Ordered ONE (11:01)
[2019-09-12] MEDS ORDERED: KETOROLAC 60 MG/2 ML VIAL (J1885) As Ordered ONE (11:01)
[2019-09-12] MEDS ORDERED: ROCURONIUM BROMIDE 50 MG/5 ML VIAL As Ordered ONE (11:01)
[2019-09-12] MEDS ORDERED: propofoL 200 MG/20 ML VIAL As Ordered ONE (11:01)
[2019-09-12] MEDS ORDERED: ONDANSETRON 4MG/2ML VIAL (J2405) As Ordered ONE (11:01)
[2019-09-12] MEDS ORDERED: dexameTHASONE 4 MG/ML 1ML VIAL (J1100) As Ordered ONE (11:01)
[2019-09-12] MEDS ORDERED: ACETAMINOPHEN 1000MG 100ML IV BTL (OFIRMEV) (J0131 PER 10MG) As Ordered ONE (11:21)
[2019-09-12] MEDS ORDERED: oxyCODONE 5MG TAB PO PRN (12:45)
[2019-09-12] MEDS ORDERED: fentaNYL 100 MCG/2 ML INJECTION (J3010) IV PRN (12:45)
[2019-09-12] MEDS ORDERED: ONDANSETRON 4MG/2ML VIAL (J2405) IV PRN ×2 (12:45)
[2019-09-12] MEDS ORDERED: PERCOCET 5MG/325MG TAB PO PRN (12:45)
[2019-09-12] MEDS ORDERED: LR 1,000 ML IV SCH ×2 (12:45)
[2019-09-12] MEDS ORDERED: MORPHINE 2 MG/ML 1ML VIAL (J2270) IV PRN (12:45)
[2019-09-12] MEDS ORDERED: ACETAMINOPHEN TAB 650MG DOSE (2X325MG) PO PRN (12:45)
[2019-09-12 14:33] VITALS: BP 140/78
--- NOTE | 2019-09-15 12:50 | RO ---
DATE OF PROCEDURE: 09/12/2019 PREOPERATIVE DIAGNOSIS: Right shoulder impingement. POSTOPERATIVE DIAGNOSES: Right shoulder impingement plus supraspinatus tendon tear. PROCEDURE: SURGEON: Leander Davila MD TOPOLOGY PROFESSOR: Melissa Stearns MOSAIC TILER: Dr. Foster TYPE OF ANESTHETIC: General anesthetic plus block. OPERATIVE PREAMBLE: This 44-year-old man has right shoulder pain and signs of impingement. He also had pain overlying the distal clavicle/AC joint and positive cross body adduction test. We talked about the pros, cons, risks, and benefits of doing nothing versus shoulder arthroscopy, subacromial, decompression, distal clavicle excision, debridement, and possible intra-articular surgery. He wished to go ahead. I reiterated the risks in preoperative holding, marked the right upper extremity, and the patient had a block prior to surgery. DESCRIPTION OF OPERATIVE REPORT: Patient was brought to the operating theater. They were administered 2 grams of intravenous (IV) Ancef. They were placed in right lateral decubitus. All bony prominences were padded. Sequential compression devices (SCDs) were used. Beanbag positioner was used. Axillary roll was placed. General anesthesia was induced. Right upper extremity was prepped and draped in the usual sterile fashion allowing over 3 minutes prep solution drying time. 15 pounds of traction was used, the arm in approximately 45 degrees of abduction. Preoperative time-out was performed confirming site, patient, and surgery. Arthroscopy portal was performed. Arthroscope inserted into the intra-articular portion of the shoulder. Anterior portal was then created through the rotator interval through an inside-out spinal needle localization technique. No obvious arthritis of the glenohumeral joint. Rotator cuff had an obvious near full thickness undersurface tear in the anterior border. Subscapularis had some longitudinal tearing but appeared well fixed with probing and with lever shift. Biceps again had some superficial fraying, but the root appeared intact. Labrum was normal. There was some synovitis superiorly and posteriorly that was also debrided intra-articularly, as well as some mild fraying in the anterior labrum. Needle was then introduced laterally to alexander the site of the full thickness anterior leading edge supraspinatus tendon tear. Arthroscopy pictures were taken throughout and saved onto the system. Arthroscope was withdrawn and placed in the subacromial space. Lateral portal was created. Full subacromial decompression was performed with a bur, as well as complete bursectomy. There was a minor amount of bursitis. I then also performed a distal clavicle excision for a length of approximately 1 cm, at least 2 bur splits. I put the scope in anteriorly right into the AC joint to confirm complete decompression. I then turned my attention back to where the spinal needle localization was for the near full thickness rotator cuff tear. Completed the tear. There were only a few fibers remaining. The tear was 1 cm from anterior to posterior and sitting in appropriate location. I used a bur to freshen up the bone down to bleeding bony surface. I then used two #2 FiberWire Arthrex sutures in an inverted horizontal mattress fashion. I brought the anterior ones out to an anterior anchor and the posterior ones out to a posterior anchor, achieving a nice tight flat repair without dog ears and appeared to achieve anatomic reduction in footprint. I used Arthrex 4.75 mm BioComposite SwiveLock anchors, two of them laterally. Two final pictures were taken. Joint thoroughly irrigated. Scope was withdrawn. Wounds were cleaned wet and dry dressing followed by closure of the subcutaneous tissues with interrupted #3-0 Monocryl sutures. Steri-Strips were applied. Adaptic, 4 x 8 gauze, ABD dressing, cloth tape, as well as sling, were then applied to the upper extremity. The patient was woken up from general anesthetic, transferred off the operating table, and taken to postanesthetic care unit in stable condition. All sponge, needle, instrument counts were correct. No complications. ESTIMATED BLOOD LOSS: 100 mL. PLAN: For the patient is to be in a sling for the first 2-4 weeks, start some gentle pendulum exercises, as well as hand, wrist, and elbow exercises. Prescription will be sent over to the pharmacy of choice. Discharge home with day surgery criteria. Change dressing in 2 days. Followup in the office in 2 weeks' time.
== END 2019-09-12 14:40 | disposition home or self-care (01) ==
LOC: M SDC 09:00
PROVIDERS: ATTEND Orthopaedic Surgery Sports Medicine
DX: M75.41 Impingement syndrome of right shoulder (principal); M75.111 Incomplete rotator cuff tear or rupture of right shoulder, not specified as traumatic; Z98.84 Bariatric surgery status
CPT/HCPCS: 29824; 29826; 29827; 64415; C1713; J0131; J0690; J1100; J1885; J2250; J2405; J2795; J3010

== ENCOUNTER → 2020-10-22 | Outpatient (CLI) | payer OTHER ==
[~2020-10-22] MED LIST changes: -CLIN150C14 PO; +CLIN150C15 PO
--- NOTE | 2020-10-22 18:42 | REPVR ---
PROCEDURE INFORMATION: Exam: MR Lumbar Spine Without Contrast. Exam date and time: 10/22/2020 6:05 PM Age: 45 years old Clinical indication: Low back pain TECHNIQUE: Imaging protocol: Multiplanar magnetic resonance images of the lumbar spine without contrast. COMPARISON: No relevant prior studies available. FINDINGS: Vertebral body height and AP alignment is preserved. Multilevel disc desiccation and mild disc space narrowing. There is degenerative endplate signal. No evidence of discitis/osteomyelitis. No epidural fluid collection. Conus medullaris terminates T12-L1. L1-L2: Mild bilateral facet joint arthropathy without central or foraminal stenosis. L2-L3: Disc bulge eccentric towards the right side. There is bilateral facet joint arthropathy and posterior laxity of ligamentum flavum. Findings result in borderline central canal stenosis and mild right foraminal stenosis. L3-L4: Moderate disc bulge with bilateral facet joint arthropathy and posterior laxity of ligamentum flavum. There is moderate central canal stenosis, quhy-nm-lljzimhv right foraminal stenosis and mild left foraminal stenosis. L4-L5: Fdlk-oo-nwvbqhdr disc bulge with bilateral facet joint arthropathy. There is ihxi-yh-yakeaebd central canal stenosis and mqzk-pz-igpurvzl left foraminal stenosis. L5-S1: Bilateral facet joint arthropathy without central or foraminal stenosis. IMPRESSION: Degenerative findings as above most prominently at L3-L4 where there is moderate central canal stenosis. Additional jfli-vn-mugqyagg central canal stenosis at L4-L5 and borderline central canal stenosis at L2-L3. Electronically signed by: Cory Mccullough On 10/22/2020 18:41:37 PM
== END ==
LOC: M RAD 17:16
PROVIDERS: ATTEND Orthopaedic Surgery
DX: M51.36 Other intervertebral disc degeneration, lumbar region (principal); M48.061 Spinal stenosis, lumbar region without neurogenic claudication

== ENCOUNTER → 2021-05-21 | Outpatient (CLI) | payer OTHER ==
[~2021-05-21] MED LIST changes: -CLIN150C15 PO; +CLIN150C17 PO; +OMEP40CA4 PO; -OMEP40CA97 PO
--- NOTE | 2021-05-22 03:09 | REP ---
INDICATION: OTHER MALAISE COMPARISON: None. TECHNIQUE: PA and lateral. FINDINGS: The mediastinum and cardiac silhouette are normal. The lung ramirez are clear and without acute consolidation, effusion, or pneumothorax. The skeletal structures are intact and normal. IMPRESSION: No acute cardiopulmonary process. <Electronically signed by Abelino Linares > 05/22/21 [id number]
== END ==
LOC: M WUC 13:39
PROVIDERS: ATTEND Internal Medicine
DX: R53.81 Other malaise (principal)

== ENCOUNTER → 2022-06-02 | Outpatient (CLI) | payer OTHER | LOC: M PLAIMG 07:56 | PROVIDERS: ATTEND Nurse Practitioner Family | DX: M51.26 Other intervertebral disc displacement, lumbar region (principal) ==

== ENCOUNTER → 2023-05-19 | Outpatient (CLI) | payer OTHER ==
[~2023-05-19] MED LIST changes: +GABA600T4 PO; +OMEP-173 PO
[2023-05-19 11:37] LABS: BASO # 0.1 10^3/uL (0.0-0.2); BASO % 0.9 % (0.0-1.0); EOS # 0.2 10^3/uL (0.0-0.5); EOS % 4.5 % (0.0-3.0); HEMATOCRIT 42.4 % (42.0-52.0); HEMOGLOBIN 14.4 g/dl (13.5-17.5); LYMPH # 2.3 10^3/uL (1.5-5.0); LYMPH % 42.2 % (24.0-44.0); MEAN CORPUSCULAR VOLUME 85.5 fl (80.0-96.0); MONO # 0.4 10^3/uL (0.0-0.8); MONO % 7.2 % (2.0-8.0); NEUTROPHILS # 2.4 10^3/uL (1.5-8.5); NEUTROPHILS % 44.8 % (36.0-66.0); PLATELET COUNT, AUTOMATED 224 10^3/uL (150-450); RED BLOOD COUNT 4.96 10^6/uL (4.30-6.10); WHITE BLOOD COUNT 5.4 10^3/uL (4.0-10.0)
[2023-05-27 07:22] LABS: BLOOD UREA NITROGEN 8 MG/DL (8-27); CARBON DIOXIDE LEVEL 19 mmol/L (20-29); CHLORIDE LEVEL 102 mmol/L (96-106); CREATININE FOR GFR 0.72 MG/DL (0.57-1.00); GLOMERULAR FILTRATION RATE > 60.0 (>59); GLUCOSE, FASTING 72 MG/DL (70-99); POTASSIUM SERUM 4.1 mmol/L (3.5-5.2); SODIUM LEVEL 138 mmol/L (134-144)
[2023-05-27 07:23] LABS: CALCIUM LEVEL 9.1 MG/DL (8.7-10.3)
== END ==
LOC: M EKG 09:42
PROVIDERS: ATTEND Podiatrist
DX: M20.21 Hallux rigidus, right foot (principal); M79.671 Pain in right foot; R00.1 Bradycardia, unspecified

== ENCOUNTER 2023-05-27 08:25 | Day surgery (SDC) | payer OTHER ==
[~2023-05-27] VITALS: Ht 177.8 cm; Wt 109.5 kg
[~2023-05-27 08:25] MED LIST changes: +ceFAZolin SOD 2 GM in IV 1 EA IV ONE
[2023-05-27] MEDS ORDERED: LR 1,000 ML IV SCH (09:35)
[2023-05-27] MEDS ORDERED: LIDOCAINE 2% MDV 20ML VIAL As Ordered ONE (12:12)
[2023-05-27] MEDS ORDERED: GENTAMICIN SULF 80MG/2ML VIAL As Ordered ONE (12:12)
[2023-05-27] MEDS ORDERED: LIDOCAINE 2% 100MG/5ML SDV (FOR ANES.) As Ordered ONE (12:45)
[2023-05-27] MEDS ORDERED: KETOROLAC 60MG 2ML VIAL As Ordered ONE (12:45)
[2023-05-27] MEDS ORDERED: MIDAZOLAM INJ 2MG/2ML VIAL As Ordered ONE (12:45)
[2023-05-27] MEDS ORDERED: fentaNYL 100 MCG/2 ML INJECTION As Ordered ONE (12:45)
[2023-05-27] MEDS ORDERED: propofoL 200 MG/20 ML VIAL As Ordered ONE (12:45)
[2023-05-27 14:03] VITALS: BP 141/80; TEMP 98.5; O2SAT 98
== END 2023-05-27 14:02 | disposition home or self-care (01) ==
LOC: M SDC 08:25
PROVIDERS: ATTEND Podiatrist
DX: M20.5X1 Other deformities of toe(s) (acquired), right foot (principal); G47.30 Sleep apnea, unspecified; F17.210 Nicotine dependence, cigarettes, uncomplicated; K21.9 Gastro-esophageal reflux disease without esophagitis; Z79.899 Other long term (current) drug therapy
CPT/HCPCS: 28289; 73630; 76000; J0665; J0690; J1100; J1580; J1885; J2250; J3010

== ENCOUNTER 2023-09-25 11:00 | Emergency (ER) | payer OTHER ==
[~2023-09-25] VITALS: Ht 177.8 cm; Wt 108.4 kg
[~2023-09-25 11:00] MED LIST changes: -ceFAZolin SOD 2 GM in IV 1 EA IV ONE
[2023-09-25 13:25] LABS: BASO % 0.4 % (0.0-1.0); EOS # 0.2 10^3/uL (0.0-0.5); EOS % 1.8 % (0.0-3.0); HEMATOCRIT 48.7 % (42.0-52.0); HEMOGLOBIN 16.7 g/dl (13.5-17.5); LYMPH # 1.6 10^3/uL (1.5-5.0); LYMPH % 18.4 % (24.0-44.0); MEAN CORPUSCULAR HEMOGLOBIN 29.2 pg (27.0-33.0); MEAN CORPUSCULAR HGB CONC 34.3 g/dl (32.0-36.5); MEAN CORPUSCULAR VOLUME 85.1 fl (80.0-96.0); MONO # 0.6 10^3/uL (0.0-0.8); MONO % 6.5 % (2.0-8.0); NEUTROPHILS # 6.2 10^3/uL (1.5-8.5); NEUTROPHILS % 72.8 % (36.0-66.0); PLATELET COUNT, AUTOMATED 244 10^3/uL (150-450); RED BLOOD COUNT 5.72 10^6/uL (4.30-6.10); WHITE BLOOD COUNT 8.5 10^3/uL (4.0-10.0)
[2023-09-25 13:37] LABS: INR 0.98; PROTHROMBIN TIME 12.7 SECONDS (12.5-14.5)
[2023-09-25] MEDS: KETOROLAC 30 MG/ML 1ML VIAL IV ONE (13:52)
[2023-09-25 13:54] LABS: BLOOD UREA NITROGEN 13 MG/DL (9-23); CALCIUM LEVEL 9.3 MG/DL (8.5-10.1); CARBON DIOXIDE LEVEL 26 MMOL/L (20-31); CHLORIDE LEVEL 106 MMOL/L (98-107); CK-MB VALUE MASS < 1.0 NG/ML (<3.6); CPK CREATINE PHOSPHOKINASE 59 U/L (46-171); CREATININE FOR GFR 0.64 MG/DL (0.70-1.30); GLOMERULAR FILTRATION RATE > 60.0 (>60); GLUCOSE, FASTING 78 MG/DL (60-100); MB/CK RELATIVE INDEX 1.69 (< OR =4); SODIUM LEVEL 138 MMOL/L (136-145)
[2023-09-25 14:09] LABS: RSV AMPLIFICATION NEGATIVE (NEGATIVE)
[2023-09-25] MEDS ORDERED: KETO10TAB PO (14:19)
[2023-09-25] MEDS ORDERED: METH-1165 PO (14:19)
[2023-09-25 14:43] VITALS: BP 128/70; TEMP 98.4; O2SAT 96
[2023-09-25] MEDS: methocarbamoL 750 MG TAB PO ONE (14:46)
== END 2023-09-25 14:53 | disposition home or self-care (01) ==
LOC: M ED 11:00
DX: M25.512 Pain in left shoulder (principal); R51.9 Headache, unspecified; R07.9 Chest pain, unspecified; F41.9 Anxiety disorder, unspecified; F32.9 Major depressive disorder, single episode, unspecified; M54.50 Low back pain, unspecified; Z98.84 Bariatric surgery status; F17.200 Nicotine dependence, unspecified, uncomplicated; Z79.899 Other long term (current) drug therapy; Z88.8 Allergy status to other drugs, medicaments and biological substances
CPT/HCPCS: 70450; 71045; 80047; 80048; 82550; 82553; 84484; 85025; 85610; 85730; 86850; 86900; 86901; 87631; 93005; 93041; 94760; 96374; 99285; J1885

== ENCOUNTER → 2023-09-30 | Outpatient (REF) | payer OTHER ==
[~2023-09-30] MED LIST changes: +KETO10TAB PO; +METH-1165 PO
[2023-09-30 17:24] LABS: BASO # 0.1 10^3/uL (0.0-0.2); BASO % 0.8 % (0.0-1.0); EOS # 0.3 10^3/uL (0.0-0.5); EOS % 5.2 % (0.0-3.0); HEMATOCRIT 41.9 % (42.0-52.0); HEMOGLOBIN 14.2 g/dl (13.5-17.5); LYMPH # 2.7 10^3/uL (1.5-5.0); LYMPH % 43.2 % (24.0-44.0); MEAN CORPUSCULAR HEMOGLOBIN 29.2 pg (27.0-33.0); MEAN CORPUSCULAR HGB CONC 33.9 g/dl (32.0-36.5); MEAN CORPUSCULAR VOLUME 86.2 fl (80.0-96.0); MONO # 0.4 10^3/uL (0.0-0.8); MONO % 6.6 % (2.0-8.0); NEUTROPHILS # 2.7 10^3/uL (1.5-8.5); PLATELET COUNT, AUTOMATED 233 10^3/uL (150-450); RED BLOOD COUNT 4.86 10^6/uL (4.30-6.10); WHITE BLOOD COUNT 6.2 10^3/uL (4.0-10.0)
[2023-09-30 17:41] LABS: ALBUMIN 3.8 G/DL (3.2-5.2); ALKALINE PHOSPHATASE 71 U/L (46-116); ALT/SGPT 17 U/L (7.0-40); AST/SGOT 16 U/L (<34); BILIRUBIN,TOTAL 0.7 MG/DL (0.3-1.2); BLOOD UREA NITROGEN 15 MG/DL (9-23); CALCIUM LEVEL 9.2 MG/DL (8.5-10.1); CARBON DIOXIDE LEVEL 30 MMOL/L (20-31); CHLORIDE LEVEL 107 MMOL/L (98-107); CREATININE FOR GFR 0.74 MG/DL (0.70-1.30); GLOMERULAR FILTRATION RATE > 60.0 (>60); GLUCOSE, FASTING 89 MG/DL (60-100); POTASSIUM SERUM 4.8 MMOL/L (3.5-5.1); SODIUM LEVEL 137 MMOL/L (136-145); TOTAL PROTEIN 6.6 G/DL (5.7-8.2)
[2023-09-30 17:42] LABS: THYROID STIMULATING HORMONE 1.644 uIU/ML (0.55-4.78)
== END ==
LOC: M LABDRWAD 16:27
PROVIDERS: ATTEND Internal Medicine
DX: E78.5 Hyperlipidemia, unspecified (principal); F33.0 Major depressive disorder, recurrent, mild; M48.07 Spinal stenosis, lumbosacral region

== ENCOUNTER 2023-10-21 12:37 | Emergency (ER) | payer OTHER ==
[~2023-10-21] VITALS: Ht 177.8 cm; Wt 108.1 kg
[2023-10-21] MEDS ORDERED: ACET300T48 (12:53)
[2023-10-21] MEDS ORDERED: PREG100C2 (12:53)
[2023-10-21] MEDS ORDERED: METH4PACK (12:53)
[2023-10-21] MEDS ORDERED: TRAM50TA2 PO (15:57)
[2023-10-21 16:15] VITALS: BP 148/85; TEMP 97.7; O2SAT 99
== END 2023-10-21 16:21 | disposition home or self-care (01) ==
LOC: M ED 12:37
DX: M54.9 Dorsalgia, unspecified (principal); F41.9 Anxiety disorder, unspecified; F32.A Depression, unspecified; Z79.899 Other long term (current) drug therapy; Z88.8 Allergy status to other drugs, medicaments and biological substances

== ENCOUNTER 2024-03-25 13:32 | Emergency (ER) | payer OTHER ==
[~2024-03-25] VITALS: Ht 180.3 cm; Wt 100.3 kg
[~2024-03-25 13:32] MED LIST changes: +ACET300T48; +METH4PACK; +PREG100C2; +TRAM50TA2 PO
[2024-03-25] MEDS ORDERED: HYDR-3713 (13:41)
[2024-03-25] MEDS ORDERED: CYCL-707 (13:41)
[2024-03-25] MEDS ORDERED: MONT10TA97 (13:41)
[2024-03-25 14:23] LABS: BASO # 0.1 10^3/uL (0.0-0.2); BASO % 0.7 % (0.0-1.0); EOS # 0.4 10^3/uL (0.0-0.5); EOS % 4.5 % (0.0-3.0); HEMATOCRIT 39.8 % (42.0-52.0); HEMOGLOBIN 13.1 g/dl (13.5-17.5); LYMPH # 3.6 10^3/uL (1.5-5.0); LYMPH % 38.6 % (24.0-44.0); MEAN CORPUSCULAR HEMOGLOBIN 28.2 pg (27.0-33.0); MEAN CORPUSCULAR HGB CONC 32.9 g/dl (32.0-36.5); MEAN CORPUSCULAR VOLUME 85.8 fl (80.0-96.0); MONO % 10.2 % (2.0-8.0); NEUTROPHILS # 4.3 10^3/uL (1.5-8.5); NEUTROPHILS % 45.9 % (36.0-66.0); PLATELET COUNT, AUTOMATED 299 10^3/uL (150-450); RED BLOOD COUNT 4.64 10^6/uL (4.30-6.10); WHITE BLOOD COUNT 9.4 10^3/uL (4.0-10.0)
[2024-03-25 14:46] LABS: ALBUMIN 3.8 G/DL (3.2-5.2); BILIRUBIN,DIRECT 0.3 MG/DL (<0.4); BILIRUBIN,TOTAL 0.9 MG/DL (0.3-1.2); TOTAL PROTEIN 6.6 G/DL (5.7-8.2)
[2024-03-25] MEDS: KETOROLAC 30 MG/ML 1ML VIAL IV ONE (15:03)
[2024-03-25] MEDS ORDERED: ISOVUE-370 76% 100ML VIAL As Ordered ONE (15:29)
[2024-03-25 16:05] LABS: APPEARANCE, URINE HAZY (CLEAR); BACTERIA, URINE AUTO NEGATIVE (NEGATIVE); BILIRUBIN, URINE AUTO NEGATIVE (NEGATIVE); BLOOD, URINE BLOOD NEGATIVE (NEGATIVE); COLOR, URINE AMBER (YELLOW); GLUCOSE, URINE (UA) AUTO NEGATIVE (NEGATIVE); KETONE, URINE AUTO TRACE mg/dL (NEGATIVE); LEUKOCYTE ESTERASE, URINE AUTO NEGATIVE (NEGATIVE); MUCUS, URINE SMALL (NEGATIVE); NITRITE, URINE AUTO NEGATIVE (NEGATIVE); PROTEIN, URINE AUTO NEGATIVE (NEGATIVE); RBC, URINE AUTO 1 /HPF (0-3); SPECIFIC GRAVITY URINE AUTO 1.035 (1.002-1.035); SQUAMOUS EPITHELIAL CELL UR AU 0 /HPF (0-6); WBC, URINE AUTO 1 /HPF (0-3)
[2024-03-25 16:18] VITALS: BP 118/74; TEMP 97.9; O2SAT 99
== END 2024-03-25 16:48 | disposition home or self-care (01) ==
LOC: M ED 13:32
DX: I88.0 Nonspecific mesenteric lymphadenitis (principal); I10 Essential (primary) hypertension; K21.9 Gastro-esophageal reflux disease without esophagitis; J45.909 Unspecified asthma, uncomplicated; Z98.84 Bariatric surgery status; F17.200 Nicotine dependence, unspecified, uncomplicated; Z79.899 Other long term (current) drug therapy; Z88.8 Allergy status to other drugs, medicaments and biological substances
CPT/HCPCS: 74177; 80047; 80076; 81001; 83690; 85025; 96374; 99284; J1885; Q9967

== ENCOUNTER → 2024-04-15 | Outpatient (REF) | payer OTHER ==
[~2024-04-15] MED LIST changes: +CYCL-707; +GABA-1490 PO; -GABA600T4 PO; +HYDR-3713; +MONT10TA97
== END ==
LOC: M LAB REF 09:25
PROVIDERS: ATTEND Physician Assistant Medical
DX: J02.9 Acute pharyngitis, unspecified (principal)

== ENCOUNTER → 2024-06-14 | Outpatient (CLI) | payer OTHER ==
[2024-06-14 16:06] LABS: PLATELET COUNT, AUTOMATED 272 10^3/uL (150-450)
[2024-06-14 16:21] LABS: INR 0.86; PARTIAL THROMBOPLASTIN TIME 27.5 SECONDS (24.8-34.2)
== END ==
LOC: M LAB 15:03
PROVIDERS: ATTEND Physician Assistant
DX: Z01.818 Encounter for other preprocedural examination (principal)

== ENCOUNTER 2024-08-07 11:41 | Emergency (ER) | payer OTHER ==
[~2024-08-07] VITALS: Ht 177.8 cm; Wt 106.2 kg
[2024-08-07 11:47] VITALS: BP 143/86; TEMP 97.7; O2SAT 98
[2024-08-07] MEDS ORDERED: AMIT50TA (11:52)
== END 2024-08-07 14:47 | disposition home or self-care (01) ==
LOC: M ED 11:41
DX: S46.011A Strain of muscle(s) and tendon(s) of the rotator cuff of right shoulder, initial encounter (principal); W00.0XXA Fall on same level due to ice and snow, initial encounter; Y92.009 Unspecified place in unspecified non-institutional (private) residence as the place of occurrence of the external cause; Y93.9 Activity, unspecified; Y99.9 Unspecified external cause status; Z79.899 Other long term (current) drug therapy; Z88.8 Allergy status to other drugs, medicaments and biological substances

== ENCOUNTER → 2024-11-12 | Outpatient (REF) | payer OTHER ==
[~2024-11-12] MED LIST changes: +AMIT50TA
[2024-11-12 14:22] LABS: HEMATOCRIT 43.7 % (42.0-52.0); HEMOGLOBIN 13.2 g/dl (13.5-17.5); MEAN CORPUSCULAR HEMOGLOBIN 25.2 pg (27.0-33.0); MEAN CORPUSCULAR HGB CONC 30.2 g/dl (32.0-36.5); MEAN CORPUSCULAR VOLUME 83.4 fl (80.0-96.0); PLATELET COUNT, AUTOMATED 358 10^3/uL (150-450); RED BLOOD COUNT 5.24 10^6/uL (4.30-6.10); WHITE BLOOD COUNT 7.3 10^3/uL (4.0-10.0)
[2024-11-12 14:28] LABS: TOTAL IRON BINDING CAPACITY 446 UG/DL (250-425)
[2024-11-12 14:29] LABS: ALBUMIN 4.3 G/DL (3.2-5.2); ALKALINE PHOSPHATASE 61 U/L (40-129); ALT/SGPT 17 U/L (7.0-40); AST/SGOT 12 U/L (<34); BILIRUBIN,TOTAL 0.6 MG/DL (0.3-1.2); BLOOD UREA NITROGEN 14 MG/DL (9-23); CALCIUM LEVEL 9.5 MG/DL (8.5-10.1); CARBON DIOXIDE LEVEL 28 MMOL/L (20-31); CHLORIDE LEVEL 105 MMOL/L (98-107); CHOLESTEROL LEVEL 129 MG/DL (<200); CHOLESTEROL RISK RATIO 2.44 (<5); CREATININE FOR GFR 0.64 MG/DL (0.70-1.30); GLOMERULAR FILTRATION RATE > 90.0 (>60); GLUCOSE, FASTING 93 MG/DL (60-100); HDL CHOLESTEROL 52.7 MG/DL (>40); IRON (FE) 23 UG/DL (65-175); LDL CHOLESTEROL 63.1 MG/DL (<100); NON-HDL-C 76.3 MG/DL; PERCENT SATURATION 5.2 % (19.7-50.0); SODIUM LEVEL 140 MMOL/L (136-145); TOTAL PROTEIN 6.9 G/DL (5.7-8.2); TRIGLYCERIDES LEVEL 66 MG/DL (<150)
[2024-11-12 14:32] LABS: FERRITIN 1.9 NG/ML (10.5-307.3); TOTAL 25(OH) VITAMIN D 12.4 NG/ML (20.0-100.0)
[2024-11-12 14:33] LABS: VITAMIN B12 LEVEL 389 PG/ML (211-911)
[2024-11-12 14:34] LABS: FOLATE 9.6 NG/ML (>5.4)
== END ==
LOC: M LABDRWAD 13:30
PROVIDERS: ATTEND Physician Assistant
DX: Z98.84 Bariatric surgery status (principal); K91.2 Postsurgical malabsorption, not elsewhere classified

== ENCOUNTER → 2024-11-13 | Outpatient (CLI) | payer OTHER | LOC: M RAD 13:23 | PROVIDERS: ATTEND Physician Assistant | DX: R39.14 Feeling of incomplete bladder emptying (principal) ==

== ENCOUNTER → 2025-04-03 | Outpatient (CLI) | payer OTHER ==
[~2025-04-03] MED LIST changes: +ACET-716 PO; +CETI-24 PO; +ERGO500029 PO; +FERR325T81 PO; +MONT10TA97 PO; +OMEP1CAP73 PO
== END ==
LOC: M SOG 06:49
PROVIDERS: ATTEND Orthopaedic Surgery
DX: M25.512 Pain in left shoulder (principal)

== ENCOUNTER → 2025-04-25 | Outpatient (CLI) | payer OTHER ==
[~2025-04-25] MED LIST changes: +HYDR-3713 PO
[2025-04-25 12:52] LABS: BASO # 0.1 10^3/uL (0.0-0.2); BASO % 1.0 % (0.0-1.0); EOS # 0.1 10^3/uL (0.0-0.5); EOS % 2.2 % (0.0-3.0); LYMPH # 1.3 10^3/uL (1.5-5.0); LYMPH % 23.2 % (24.0-44.0); MONO # 0.4 10^3/uL (0.0-0.8); MONO % 7.1 % (2.0-8.0); NEUTROPHILS # 3.8 10^3/uL (1.5-8.5); NEUTROPHILS % 66.2 % (36.0-66.0); PLATELET COUNT, AUTOMATED 248 10^3/uL (150-450)
[2025-04-25 12:56] LABS: ALT/SGPT 12 U/L (7.0-40); AST/SGOT 10 U/L (<34); CALCIUM LEVEL 9.2 MG/DL (8.5-10.1); CARBON DIOXIDE LEVEL 30 MMOL/L (20-31); CHLORIDE LEVEL 106 MMOL/L (98-107); CREATININE FOR GFR 0.71 MG/DL (0.70-1.30); GLOMERULAR FILTRATION RATE > 90.0 (>60); POTASSIUM SERUM 4.4 MMOL/L (3.5-5.1); SODIUM LEVEL 138 MMOL/L (136-145)
[2025-04-25 12:59] LABS: INR 0.89
[2025-04-25 16:34] LABS: ESTIMATED AVERAGE GLUCOSE 88.0 MG/DL (60-110)
== END ==
LOC: M LABDRWAD 08:18
PROVIDERS: ATTEND Orthopaedic Surgery
DX: M75.122 Complete rotator cuff tear or rupture of left shoulder, not specified as traumatic (principal)

== ENCOUNTER 2025-05-08 09:18 | Day surgery (SDC) | payer OTHER ==
[~2025-05-08] VITALS: Ht 177.8 cm; Wt 92.2 kg
[2025-05-08] MEDS ORDERED: dexAMETHasone 4 MG/ML 1 ML VIAL As Ordered ONE (09:51)
[2025-05-08] MEDS: MIDAZOLAM INJ 2 MG/2 ML VIAL IV PRN (11:02)
[2025-05-08] MEDS: dexAMETHasone 10 MG/1 ML VIAL PRES.FREE PN ONE (11:15)
[2025-05-08] MEDS: ROPIvacaine 0.5% 30ML VIAL PN ONE (11:15)
[2025-05-08] MEDS ORDERED: ROCURONIUM BROMIDE 50MG/5ML VIAL As Ordered ONE (11:43)
[2025-05-08] MEDS ORDERED: LIDOCAINE 2% 100 MG/5 ML SDV (FOR ANES.) As Ordered ONE (11:43)
[2025-05-08] MEDS: ceFAZolin SOD 2 GM IV ONCE IV ONE (12:15)
[2025-05-08] MEDS ORDERED: ACETAMINOPHEN 1000MG/100ML IV BAG As Ordered ONE (12:19)
[2025-05-08] MEDS: TRANEXAMIC ACID 100 MG/ML 10ML VIAL As Ordered ONE (12:20)
[2025-05-08] MEDS ORDERED: ONDANSETRON 4MG/2ML VIAL As Ordered ONE (12:24)
[2025-05-08] MEDS ORDERED: SUGAMMADEX SODIUM 500 MG/5 ML VIAL As Ordered ONE (12:24)
[2025-05-08] MEDS: LIDOCAINE 1% SDV 30 ML VIAL As Ordered ONE (15:11)
[2025-05-08] MEDS: EPINEPHrine 1 MG/ML INJ 30 ML MD-VIAL As Ordered ONE (15:11)
[2025-05-08] MEDS ORDERED: HYDR-3713 PO (15:52)
[2025-05-08] MEDS ORDERED: CELE100C PO (15:52)
[2025-05-08] MEDS ORDERED: ECOT325T5 PO (15:52)
[2025-05-08] MEDS ORDERED: ECOT81TA5 PO (16:00)
[2025-05-08] MEDS ORDERED: HYDROMORPHONE HCL 0.5 MG/0.5 ML SYRINGE IV PRN (16:20)
[2025-05-08] MEDS ORDERED: ONDANSETRON 4MG/2ML VIAL IV PRN (16:20)
[2025-05-08 17:35] VITALS: BP 131/75; TEMP 97.5; O2SAT 98
== END 2025-05-08 17:36 | disposition home or self-care (01) ==
LOC: M SDC 09:18
PROVIDERS: ATTEND Orthopaedic Surgery
DX: M75.122 Complete rotator cuff tear or rupture of left shoulder, not specified as traumatic (principal); S46.212D Strain of muscle, fascia and tendon of other parts of biceps, left arm, subsequent encounter; W01.0XXD Fall on same level from slipping, tripping and stumbling without subsequent striking against object, subsequent encounter; Y92.9 Unspecified place or not applicable; Y93.9 Activity, unspecified; Y99.9 Unspecified external cause status; R06.83 Snoring; K21.9 Gastro-esophageal reflux disease without esophagitis; Z88.8 Allergy status to other drugs, medicaments and biological substances; F17.210 Nicotine dependence, cigarettes, uncomplicated; Z79.899 Other long term (current) drug therapy
CPT/HCPCS: 29826; 29827; 29828; C1713; J0131; J0165; J0688; J0690; J1100; J2250; J2405; J2795; J3010

== ENCOUNTER → 2025-06-26 | Outpatient (CLI) | payer OTHER ==
[~2025-06-26] MED LIST changes: +CELE100C PO; +ECOT325T5 PO; +ECOT81TA5 PO
== END ==
LOC: M SOG 08:36
PROVIDERS: ATTEND Orthopaedic Surgery
DX: M25.512 Pain in left shoulder (principal); M75.122 Complete rotator cuff tear or rupture of left shoulder, not specified as traumatic; M19.012 Primary osteoarthritis, left shoulder